=== PATIENT | male | born 1945 | race Caucasian/White ===

== ENCOUNTER → 2017-03-09 | Outpatient (CLI) | payer MEDICARE ==
[2017-03-09 12:15] LABS: ALT 45 U/L (21-72); AST 29 U/L (17-59); Cholesterol 152 mg/dL (<200); HDL Cholesterol 46 mg/dL (40-60); Triglycerides 156 mg/dL (<150)
== END | disposition home or self-care (01) ==
LOC: LABWHC1 11:09
PROVIDERS: ATTEND Internal Medicine Interventional Cardiology
DX: E78.2 Mixed hyperlipidemia (principal)
CPT/HCPCS: 36415; 80061; 84450; 84460

== ENCOUNTER 2017-08-16 02:27 | Emergency (ER) | payer MEDICARE ==
[2017-08-16 02:42] VITALS: TEMP 97.3
[2017-08-16] MEDS ORDERED: ONDANSETRON 4 MG ODT STARTER PACK 2 TAB BTL PO STA (03:25)
[2017-08-16] MEDS ORDERED: HYDROcodone/APAP 10-325MG 1 EACH TAB PO ONE (03:37)
[2017-08-16] MEDS ORDERED: cloNIDine HCL 0.2 MG TAB PO STA (03:45)
--- NOTE | 2017-08-16 03:47 | ED ---
ENT HPI - General Source: patient, family, RN notes reviewed, old records reviewed Mode of arrival: ambulatory Limitations: no limitations <Le Messina - Last Filed: 08/16/17 11:44> <Shaggy Owusu - Last Filed: 08/16/17 19:04> - General Chief complaint: ENT Stated complaint: eye problem Time Seen by Provider: 08/16/17 02:45 - History of Present Illness Initial comments: This patient is a 71-year-old male presents emergency department today chief complaint of left eye redness pain and swelling for the past evening. He reports the symptoms started approximately 5:00 this evening while he was sitting watching TV. He has a history of glaucoma, and had an I reviewed ectomy , and stents placed within his eyes due to glaucoma. This was performed by a eye surgeon in the summer. Shadi also has history of cataracts. He reports no foreign bodies within the eye. He reports that his left eye has blurry vision. Visual acuity was obtained and is 20/70 within the left eye and 20/40 within the right eye. 20/40 with both eyes. Patient reports that he is now starting to have a headache and feel nauseated. (Le Messina) - Related Data Previous Rx's Medication Instructions Recorded Ondansetron Odt [Zofran ODT] 4 mg PO Q8HR PRN #10 tab 08/16/17 Allergies Allergy/AdvReac Type Severity Reaction Status Date / Time No Known Allergies Allergy Verified 08/16/17 02:42 Review of Systems ROS Other: All systems not noted in ROS Statement are negative. <Le Messina - Last Filed: 08/16/17 11:44> ROS Other: All systems not noted in ROS Statement are negative. <Shaggy Owusu - Last Filed: 08/16/17 19:04> ROS Statement: Those systems with pertinent positive or pertinent negative responses have been documented in the HPI. Past Medical History Past Medical History: Diabetes Mellitus, Hyperlipidemia, Hypertension, Myocardial Infarction (NE) History of Any Multi-Drug Resistant Organisms: None Reported Past Surgical History: Heart Catheterization With Stent Additional Past Surgical History / Comment(s): right ankle ORIF. cataracts. Past Psychological History: No Psychological Hx Reported Smoking Status: Never smoker Past Alcohol Use History: None Reported Past Drug Use History: None Reported <eL Messina - Last Filed: 08/16/17 11:44> General Exam Limitations: no limitations General appearance: alert, in no apparent distress Head exam: Present: atraumatic, normocephalic, normal inspection Eye exam: Present: PERRL, EOMI, conjunctival injection (Left eye conjunctival injection. It appears to be swelling over the left eye.), other (Patient does have significant swelling and protrusion of the left eye. Pressures were obtained with tonometry. Patient's left eye pressure measures proximally 63 mmHg. Right eye measures 20 mmHg.). Absent: normal appearance, scleral icterus , periorbital swelling Pupils: Present: normal accommodation Expanded Eyelids: Erythema: Left Pupils: Regular, Round: Bilateral Sclera/Conjunctival: Injection: Left Visual acuity (R) = 20/: 40 Visual acuity (L) = 20/: 70 With correction: No IOP (R) in mmH IOP (L) in mmH IOP measured with: Tonopen ENT exam: Present: normal exam, mucous membranes moist Neck exam: Present: normal inspection. Absent: tenderness, meningismus, lymphadenopathy Respiratory exam: Present: normal lung sounds bilaterally. Absent: respiratory distress, wheezes, rales, rhonchi, stridor <Le Messina - Last Filed: 08/16/17 11:44> <Shaggy Owusu - Last Filed: 08/16/17 19:04> - General Exam Comments Initial Comments: This is a 71-year-old male. Patient appears in moderate discomfort. (Le Messina) Course <Le Messina - Last Filed: 08/16/17 11:44> <Shaggy Owusu - Last Filed: 08/16/17 19:04> Vital Signs 08/16/17 08/16/17 08/16/17 02:33 04:35 05:18 Temperature 97.3 F L Pulse Rate 55 L Respiratory 16 Rate Blood Pressure 177/84 180/81 156/72 O2 Sat by Pulse 92 L Oximetry 08/16/17 06:15 Temperature Pulse Rate 60 Respiratory 18 Rate Blood Pressure 115/60 O2 Sat by Pulse 98 Oximetry - Reevaluation(s) Reevaluation #1: 08/16/17 03:47 At this time I discussed the case after tracing. Discussed it with Dr. Dale will call weaving inspector. He will be coming in to see the patient at this time. I did order pain medication nausea medication for the patient. (Le Messina) Reevaluation #2: 08/16/17 04:44 Patient has been read by Dr. Shirley. He examined the patient with a slit lamp as well as the place timolol and pilocarpine drops. (Le Messina) Reevaluation #3: 08/16/17 05:16 Patient had a paracentesis of the eye by Dr. Shirley. Care will be transferred to Dr. Moreno this time. (Le Messina) Medical Decision Making - Lab Data Result diagrams: 08/16/17 04:30 08/16/17 04:30 <Le Messina - Last Filed: 08/16/17 11:44> - Lab Data Result diagrams: 08/16/17 04:30 08/16/17 04:30 <Shaggy Owusu - Last Filed: 08/16/17 19:04> - Medical Decision Making I saw this patient in conjunction with the physician librarian assistant. I performed independent history and physical exam. Agree with case management. (Shaggy Owusu) - Lab Data Lab Results 08/16/17 08/16/17 Range/Units 04:30 04:30 WBC 9.0 (3.8-10.6) k/uL RBC 5.70 (4.30-5.90) m/uL Hgb 16.3 (13.0-17.5) gm/dL Hct 49.8 (39.0-53.0) % MCV 87.4 (80.0-100.0) fL MCH 28.7 (25.0-35.0) pg MCHC 32.8 (31.0-37.0) g/dL RDW 14.7 (11.5-15.5) % Plt Count 233 (150-450) k/uL Neutrophils % 71 % Lymphocytes % 21 % Monocytes % 4 % Eosinophils % 1 % Basophils % 1 % Neutrophils # 6.4 (1.3-7.7) k/uL Lymphocytes # 1.9 (1.0-4.8) k/uL Monocytes # 0.4 (0-1.0) k/uL Eosinophils # 0.1 (0-0.7) k/uL Basophils # 0.1 (0-0.2) k/uL Sodium 139 (137-145) mmol/L Potassium 4.8 (3.5-5.1) mmol/L Chloride 104 (98-107) mmol/L Carbon Dioxide 26 (22-30) mmol/L Anion Gap 9 mmol/L BUN 22 H (9-20) mg/dL Creatinine 1.20 (0.66-1.25) mg/dL Est GFR (MDRD) Af Amer >60 (>60 ml/min/1.73 sqM) Est GFR (MDRD) Non-Af 60 (>60 ml/min/1.73 sqM) Glucose 229 H (74-99) mg/dL Calcium 9.4 (8.4-10.2) mg/dL Disposition <Le Messina - Last Filed: 08/16/17 11:44> <Shaggy Owusu - Last Filed: 08/16/17 19:04> Clinical Impression: Glaucoma (increased eye pressure) Disposition: HOME SELF-CARE Condition: Fair Instructions: Glaucoma (ED) Additional Instructions: as was discussed, follow-up with Dr. Schafer in his clinic today and also take the medications as was directed. Use the moxifloxacin drops 4 times per day. use the timolol drops every 2 hours. Prescriptions: Ondansetron Odt [Zofran ODT] 4 mg PO Q8HR PRN #10 tab PRN Reason: Nausea Referrals: None,Stated [Primary Care Provider] - 1-2 days
[2017-08-16] MEDS ORDERED: PROPARACAINE 0.5% OPHTH DROPS 15 ML BTL BOTH EYES STA (03:53)
[2017-08-16] MEDS ORDERED: HYDROmorphone 1 MG/ML 1 ML SYRINGE IVP STA (03:53)
[2017-08-16] MEDS ORDERED: ONDANSETRON 4 MG/2 ML VIAL IVP STA (04:17)
[2017-08-16] MEDS ORDERED: PILOCARPINE 2% OPHTH DROPS 15 ML BTL LEFT EYE STA (04:25)
[2017-08-16] MEDS ORDERED: TIMOLOL 0.5% OPHTH DROPS 5 ML BTL LEFT EYE STA (04:25)
[2017-08-16 04:40] LABS: Basophils # (A) 0.1 k/uL (0-0.2); Basophils % (A) 1 %; Eosinophils # (A) 0.1 k/uL (0-0.7); Eosinophils % (A) 1 %; HCT 49.8 % (39.0-53.0); HGB 16.3 gm/dL (13.0-17.5); Lymphocytes # (A) 1.9 k/uL (1.0-4.8); Lymphocytes % (A) 21 %; MCH 28.7 pg (25.0-35.0); MCHC 32.8 g/dL (31.0-37.0); MCV 87.4 fL (80.0-100.0); Mean Platelet Volume 8.1; Monocytes # (A) 0.4 k/uL (0-1.0); Monocytes % (A) 4 %; Neutrophils # (A) 6.4 k/uL (1.3-7.7); Neutrophils % (A) 71 %; Platelet Count 233 k/uL (150-450); RDW 14.7 % (11.5-15.5)
[2017-08-16 04:49] LABS: Anion Gap 9 mmol/L; Blood Urea Nitrogen 22 mg/dL (9-20); Calcium 9.4 mg/dL (8.4-10.2); Carbon Dioxide 26 mmol/L (22-30); Chloride 104 mmol/L (98-107); Glucose 229 mg/dL (74-99); Potassium 4.8 mmol/L (3.5-5.1); Sodium 139 mmol/L (137-145)
[2017-08-16] MEDS ORDERED: KETOROLAC 30 MG/ML 1 ML VIAL IVP STA (04:55)
[2017-08-16] MEDS ORDERED: MOXIFLOXACIN HCL 0.5% DROPS 3 ML BTL LEFT EYE ONE (05:16)
[2017-08-16 06:17] VITALS: BP 115/60; PULSE 60; RESP 18
--- NOTE | 2017-08-16 06:17 | P.CON ---
Consult Note - . Consult date: 08/16/17 Eye Problem Exam - General Limitations: no limitations Pupils: Reactive: Left (sluggish w/ RAPD) Sclera: Injection: Left (1+) Cornea: Streaming: Left (2+ microcystic) Anterior chamber: Normal Inspection: Bilateral Posterior chamber: Normal Inspection: Bilateral (C:D OD 0.40; OS 0.70 x 0.95) Visual acuity (L) = 20/: 70 Visual acuity (R) = 20/: 20 With correction: Yes IOP (L) in mmH IOP measured with: other Extraocular Movement: Normal Eye Problem HPI - General Source: patient, family, RN notes reviewed, old records reviewed Mode of arrival: ambulatory Limitations: no limitations - History of Present Illness Initial comments: 71 y/o male who underwent bilateral cataract and MIGS January 2017 presents after several hours of mounting discomfort in the left eye. He had been relieved of glaucoma drops following the cataract surgery and vision was good. No previous problem noted, but about bedtime began to experience what seemed as a sinus infection. He slept for a short period of time and awoke with increased pain, blurry vision and nausea. On presentation to the ER he was experiencing pain of 10/10 and had vomited at least once. Initial 500mg acetazolamide was given when seen by ER personnel. On examination and repeat IOP which was 61 mm Hg, additional medication of pilocarpine 2% and timolol 0.5% were given and the patient was allowed to wait about 15 minutes with minimal effect. 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 There was a MIGS device noted in the left eye. After noting minimal relief in either pain or pressure, with the patient's permission a paracentesis was performed at the bedside. Approximately 0.1 ml was removed and the IOP immediately dropped to 12 mm Hg. Similarly the discomfort in the eye returned to 0/10 and vision improved. Repeat slit lamp exam noted clearing of the cornea and miosis from the previously applied pilocarpine. Optic nerve exam was limited after the installation of the pilocarpine, but there did not appear to be gross changes in the circulation or the optic nerve. Once things were stable he was discharged on timolol 0.5% twice daily, and moxifloxacin 4 times daily, and was asked to have an appointment today with Dr. Schafer his supervisor inspection. He is to call, if before that appointment is accomplished, he begins to have repeat symptoms or changes in vision. - Related Data Previous Rx's Medication Instructions Recorded Ondansetron Odt [Zofran ODT] 4 mg PO Q8HR PRN #10 tab 08/16/17 Allergies Allergy/AdvReac Type Severity Reaction Status Date / Time No Known Allergies Allergy Verified 08/16/17 02:42
--- NOTE | 2017-08-16 08:29 | OP ---
OPERATIVE REPORT DATE OF PROCEDURE: 08/16/2017. PROCEDURE: Anterior chamber paracentesis. PREOPERATIVE DIAGNOSIS: Acute increased intra-ocular pressure, left eye. POSTOPERATIVE DIAGNOSIS: Acute increased intra-ocular pressure, left eye. SURGEON: Dr. James Shirley. ANESTHESIA: Topical. ESTIMATED BLOOD LOSS: None. SPECIMEN TAKEN: None. NARRATIVE: After obtaining the appropriate consent, this patient who had presented to the emergency room with markedly increased intra-ocular pressure in the left eye of 63 mm had continued to demonstrate poor response to medications and continued discomfort of 10/10 of the left eye. As the problem had been ongoing for at least 5 hours, there was a significant risk of possible loss of vision in this eye. Therefore, it was decided to perform an anterior chamber paracentesis. The procedure proceeded at the patient's bedside. He was elevated to approximately 45 degree angle. A good bright light was brought onto the field and a 30-gauge hypodermic needle attached to a tuberculin syringe was passed into the anterior chamber. Approximately 1/10 mL of clear aqueous fluid was removed from within the anterior chamber. The cornea was definitely less tense and a repeat intra-ocular pressure dropped the intra-ocular pressure from 61 mmHg down to 12. Very shortly afterwards the patient has noted 100% relief of the pain and significant improvement in terms of visual recovery. There were no complications from the procedure. He tolerated the procedure well and was discharged from the emergency room in fair condition. MMODL / IJN: [id number] /
== END 2017-08-16 06:12 | disposition home or self-care (01) ==
LOC: EC 02:27
DX: H40.9 Unspecified glaucoma (principal); Z98.41 Cataract extraction status, right eye; Z98.42 Cataract extraction status, left eye
CPT/HCPCS: 99284; 65800; 96374; 96375 ×3; 36415; 80048; 85025; J1120; J2405; J1885; J1170; S0119

== ENCOUNTER 2022-08-29 08:13 | Day surgery (SDC) | payer MEDICARE ==
[~2022-08-29 08:13] MED LIST: LACTATED RINGERS 1,000 ML IV SCH; LIDOCAINE 1% (10MG/ML) FOR IV START INTRADERMA PRN
[2022-08-29 08:52] VITALS: TEMP 97
[2022-08-29 08:56] LABS: Glucose,Whole Blood 119 mg/dL (70-110)
[2022-08-29] MEDS ORDERED: PROPOFOL 10 MG/ML 20 ML VIAL IV ONE (09:26)
--- NOTE | 2022-08-29 09:44 | P.PCN ---
Date of Procedure: 08/29/22 Procedure(s) Performed: BRIEF HISTORY: Patient is a 76-year-old pleasant white male scheduled for an elective colonoscopy as a part of screening for colon cancer. PROCEDURE PERFORMED: Colonoscopy with snare polypectomy. PREOPERATIVE DIAGNOSIS: Screening for colon cancer. IV sedation per Anesthesia. PROCEDURE: After informed consent was obtained, the patient, was brought into the endoscopy unit. IV sedation was administered by Anesthesia under continuous monitoring. Digital rectal examination was normal. Initially the Olympus CF-160 flexible video colonoscope was then inserted in the rectum, gradually advanced into the cecum without any difficulty. Careful examination was performed as the scope was gradually being withdrawn. Ileocecal valve and the appendiceal orifice were visualized and appeared normal. Prep was excellent. Mucosa of the cecum, ascending colon appeared normal. In the hepatic flexure there was a 5 mm polyp removed by snare polypectomy. In the transverse colon there was a 4 mm sessile polyp removed by snare polypectomy. Rest of the, transverse colon, descending colon, sigmoid colon, and rectum appeared normal. Scattered sigmoid diverticulosis. Retroflexion was performed in the rectum and no lesions were seen. The patient tolerated the procedure well. IMPRESSION: 5 mm hepatic flexure polyp status post polypectomy 4 mm transverse colon polyp status post polypectomy Sigmoid diverticulosis RECOMMENDATIONS: Findings of this examination were discussed with the patient as well as his family.. He was advised to follow with the biopsy results. If the biopsy reveals adenoma he can have a repeat colonoscopy in 5 years.
[2022-08-29 10:09] LABS: Glucose,Whole Blood 106 mg/dL (70-110)
[2022-08-29 10:12] VITALS: BP 129/70; PULSE 63; RESP 16
== END 2022-08-29 10:39 | disposition home or self-care (01) ==
LOC: ORWHC2ENDO 08:13
PROVIDERS: ATTEND Internal Medicine Gastroenterology
DX: Z12.11 Encounter for screening for malignant neoplasm of colon (principal); D12.3 Benign neoplasm of transverse colon; K57.30 Diverticulosis of large intestine without perforation or abscess without bleeding; I10 Essential (primary) hypertension; I25.10 Atherosclerotic heart disease of native coronary artery without angina pectoris; I25.2 Old myocardial infarction; E11.9 Type 2 diabetes mellitus without complications; Z95.5 Presence of coronary angioplasty implant and graft; Z79.4 Long term (current) use of insulin; Z79.82 Long term (current) use of aspirin
CPT/HCPCS: 45385; J2704; 88305

== ENCOUNTER → 2024-12-29 | Outpatient (CLI) | payer MEDICARE ==
[2024-12-29 17:05] LABS: ALT 24 U/L (10-49); AST 25 U/L (14-35); LDL Cholesterol,Calculated 46.7 mg/dL (0.0-131.0); VLDL Calculation 18.44 mg/dL (5.00-40.00)
== END | disposition home or self-care (01) ==
LOC: LABWHC1 11:18
PROVIDERS: ATTEND Internal Medicine Interventional Cardiology
DX: E78.2 Mixed hyperlipidemia (principal)
CPT/HCPCS: 36415; 80061; 84450; 84460